=== PATIENT | male | born 1965 | race Caucasian/White ===

== ENCOUNTER 2016-04-25 08:10 | Day surgery (SDC) | payer BC, OTHER ==
[2016-04-21 08:51] VITALS: BMI 56.0
--- NOTE | 2016-04-21 09:28 | PAT Medication Instructions ---
Service Date Apr 21, 2016. Current Home Medication List Colestipol HCl (Colestid), 1 TAB PO BID Dicyclomine Hcl (Bentyl), 20 MG PO QID Fluticasone Propionate (Nasal) (Flonase Allergy Relief), 2 SPRAY JOSSY DAILY PRN for PRN Ibuprofen Tab (Advil), 400-600 MG PO Q6H PRN for Pain Loperamide HCl (Loperamide HCl), 2 CAP PO QID PRN for Diarrhea Losartan Potassium (Cozaar), 25 MG PO QAM Metformin Hcl Er (Glucophage Er), 500 MG PO BID Ranitidine Hcl (Zantac), 150 MG PO BID Medication Instructions For Your Scheduled Surgery - Hold the following medications 48 hours prior to surgery: Metformin Hcl Er (Glucophage Er), 500 MG PO BID - Hold the following medications 24 hours prior to surgery: Colestipol HCl (Colestid), 1 TAB PO BID - Hold the following medications the morning of surgery: Dicyclomine Hcl (Bentyl), 20 MG PO QID Ibuprofen Tab (Advil), 400-600 MG PO Q6H PRN for Pain (otherwise okay to continue per surgeon) Loperamide HCl (Loperamide HCl), 2 CAP PO QID PRN for Diarrhea Losartan Potassium (Cozaar), 25 MG PO QAM - Take the following medications the morning of surgery with a sip of water OTHERWISE NOTHING TO EAT OR DRINK AFTER MIDNIGHT: Ranitidine Hcl (Zantac), 150 MG PO BID Fluticasone Propionate (Nasal) (Flonase Allergy Relief), 2 SPRAY JOSSY DAILY PRN - Take the following medications as scheduled the night before surgery: Ranitidine Hcl (Zantac), 150 MG PO BID Dicyclomine Hcl (Bentyl), 20 MG PO QID Ibuprofen Tab (Advil), 400-600 MG PO Q6H PRN for Pain Fluticasone Propionate (Nasal) (Flonase Allergy Relief), 2 SPRAY JOSSY DAILY PRN Loperamide HCl (Loperamide HCl), 2 CAP PO QID PRN for Diarrhea If you have any questions please call us at [phone] or [phone] or [phone]
[~2016-04-25] VITALS: Ht 193 cm; Wt 211.7 kg
[~2016-04-25 08:10] MED LIST: CLS1 PO; DICY20TA35 PO; FLUT0.15 NAE; IBUP-103 PO; IMD2 PO; LACTATED RINGER'S 1000ML 1,000 ML IV SCH; LOSA1TAB PO; METF500T5 PO; RANI150T3 PO
[2016-04-25 08:51] VITALS: BP 144/85; PULSE 83; TEMP 36.9; O2SAT 97; Ht 193 cm; Wt 211.7 kg
[2016-04-25] MEDS ORDERED: CEFAZOLIN IV 3,000 MG/65 ML D5W IV ONE (09:08)
[2016-04-25] MEDS ORDERED: FENTANYL CITRATE INJ 50 MCG/1 ML 2 ML VIAL ONE ×2 (09:40→10:29)
[2016-04-25] MEDS ORDERED: MIDAZOLAM HCL 1 MG/ML 2ML VIAL ONE (09:40)
[2016-04-25] MEDS ORDERED: ONDANSETRON INJ 2 MG/ML 2 ML VIAL ONE (09:40)
[2016-04-25] MEDS ORDERED: ROCURONIUM BROMIDE 10 MG/ML 5 ML VIAL ONE ×2 (09:40→11:03)
[2016-04-25] MEDS ORDERED: LIDOCAINE HCL 2% 2 ML VIAL (20MG/ML) ONE (09:40)
[2016-04-25] MEDS ORDERED: PROPOFOL IV EMULSION 10 MG/ML 20 ML VIAL IV ONE ×2 (09:40→10:36)
[2016-04-25] MEDS ORDERED: GLYCOPYRROLATE INJ 0.2 MG/ML VIAL ONE ×2 (09:40→12:18)
--- NOTE | 2016-04-25 09:40 | History & Physical Bridge Note ---
H&P Re-Evaluation Bridge Note: I have examined the patient, reviewed the History & Physical and in the interval since the performance of the History & Physical I have noted the following changes of clinical significance: No changes noted
[2016-04-25] MEDS ORDERED: LIDOCAINE HCL 1% 20 ML VIAL ONE (09:58)
[2016-04-25] MEDS ORDERED: BUPIVACAINE 0.5 % 5 MG/1 ML MPF 30ML VIAL ONE (09:59)
[2016-04-25] MEDS ORDERED: SUCCINYLCHOLINE 100MG/5ML SYR IV ONE (10:33)
[2016-04-25] MEDS ORDERED: NEOSTIGMINE METHYLSULFATE 5 MG/5 ML SYR ONE (10:36)
[2016-04-25] MEDS ORDERED: SODIUM CHLORIDE 0.9% 1000ML 1,000 ML IV SCH (12:27)
--- NOTE | 2016-04-25 12:27 | [facility] Post Operative Brief Note ---
Immediate Operative Summary Operative Date Apr 25, 2016. Pre-Operative Diagnosis epigastric hernia Post-Operative Diagnosis epigastric hernia Procedure(s) Performed Epigastric Hernia Repair Surgeon Dr. Mc Oakes Machine Rug Cleaner Surgeon(s) Ramya Ott PA-C Estimated Blood Loss 15ML Findings See dictation Specimens A. HERNIA SAC B. OMENTUM Drains one J-P in the subcutaneous tissue Anesthesia General Complication(s) None Disposition Recovery Room / PACU
[2016-04-25] MEDS ORDERED: MoRPHine SULFATE 4 MG/ML 1 ML CARP\\VIAL IV PRN (12:30)
[2016-04-25] MEDS ORDERED: ONDANSETRON INJ 2 MG/ML 2 ML VIAL IV PRN ×2 (12:30→13:30)
--- NOTE | 2016-04-25 12:31 | Discharge Instructions ---
Discharge Instructions Admission Reason for Admission: Epigastric Hernia Discharge Discharge Diagnosis / Problem: Same Discharge Goals Goal(s): Decrease discomfort Activity Recommendations Activity Limitations: per Instructions/Follow-up section Lifting Limitations: no more than 10 pounds Shower/Bathe: tomorrow (Shower only) . Instructions / Follow-Up Instructions / Follow-Up ACTIVITY RECOMMENDATIONS: * Walk as much as possible. * No heavy lifting (>10 lbs.) for 6 weeks. SPECIAL CARE INSTRUCTIONS: * Ice to hernia repair site on and off until bedtime tonight. * May shower in 24 hours. Let water run over area and pat dry. * Leave steri strips on for one week. * Call the surgeon's office with any questions or concerns - (ex. temperature higher than 101 degrees F, excessive bleeding or pain). MEDICATIONS: Resume previous medications unless instructed otherwise by your surgeon. * Ibuprofen 600 mg every 6 hours with food * Percocet 1 every 4 hours, as needed for pain FOLLOW UP VISIT: If not already scheduled, please call the office to schedule a two week follow- up appointment. Office number Current Hospital Diet Patient's current hospital diet: Discharge Diet Recommended Diet: Regular Diet Procedures Procedures Performed: Epigastric Hernia Repair Pending Studies Studies pending at discharge: no Medical Emergencies . Who to Call and When: Medical Emergencies: If at any time you feel your situation is an emergency, please call 911 immediately. . Non-Emergent Contact Non-Emergency issues call your: Primary Care Provider, Surgeon Call Non-Emergent contact if: your pain is worsening, wound has increased redness, wound has increased pain . "Provider Documentation" section prepared by Mc Oakes. VTE Core Measure Inpt VTE Proph given/why not?: Treatment not indicated
--- NOTE | 2016-04-25 13:06 | OPERATIVE REPORT ---
DATE OF OPERATION: 04/25/2016 PREOPERATIVE DIAGNOSIS: Epigastric hernia. POSTOPERATIVE DIAGNOSIS: Same. PROCEDURE: Repair of epigastric hernia. SURGEON: Dr. Oakes. VINYL WELDER AND FABRICATOR: Ml Ott PA-C. DATE OF PROCEDURE: 04/25/2016. FINDINGS: The patient had a hernia sac that measured between 10-15 cm. There was a significant amount of omental tissue within the hernia, but there was no bowel. That could not be reduced. The hernia defect itself was 6-7 cm. There were no other hernia defects identified. TECHNIQUE: The patient was given a general anesthetic and the area was prepped and draped in the usual sterile fashion. Transverse incision was made over the previously marked area, carried down through the subcutaneous tissue until the hernia sac could be identified. The hernia sac was then away from the subcutaneous tissue using blunt, sharp and cautery dissection where appropriate. I worked down towards the fascia and I had to peel the hernia sac off the anterior surface of the fascia for a distance of about 2 cm around the entire defect. The hernia sac was then opened. I tried to reduce the omental fat back into the abdomen, but I could not. Using a clamp-clamp, divide and ligate technique I removed the omentum and then was able to pass the remainder back into the abdomen. That allowed me access to the interior surface of the hernia sac and then was able to palpate the edge of the fascia around the entire circumference. I then was able to grasp the edge of the fascia and elevate it and establish a preperitoneal plane around the entire circumference and then worked that to a distance of 4-5 cm around the entire circumference of the fascial opening. The redundant hernia sac was removed. The omentum where dissection had been performed was inspected and there was no bleeding. The peritoneum was then closed with a running 2-0 Vicryl with a locked suture. There was 1 other opening in the peritoneum that was closed with a [id number] suture of 2-0 Vicryl. A piece of Atrium mesh was then cut to size and it measured 14 x 11 cm. It was placed in a preperitoneal retrofascial position. The mesh was secured to the undersurface of the fascia using horizontal mattress sutures of 0 PDS and the fascial opening was closed with a running #1 PDS. The wound was irrigated and irrigation removed. The subcutaneous tissue could be mobilized some of the deeper subcutaneous tissue was approximated using 2-0 Vicryl interrupted sutures; however, it left a space at the base just over the fascia. A separate stab incision was made to the right below the hernia incision through which a 10 mm flat Michael-Vallejo was brought. It was placed in the base of the wound, and the subcutaneous tissue was then closed over it using the interrupted 2-0 Vicryl. The superficial subcutaneous tissue was closed with running 3-0 Vicryl and the skin was closed with 4-0 Monocryl in running subcuticular fashion. The skin was anesthetized with 0.5% Marcaine. The skin was cleansed, dried, benzoin placed, Steri-Strips applied. The estimated blood loss was 15 mL. Sponge, needle, and instrument counts were correct prior to closure. The drain was secured with 3-0 nylon. She was transferred to recovery. I attest to the content of the Intraoperative Record and any orders documented therein. Any exceptio ns are noted below.
[2016-04-25] MEDS ORDERED: LABETALOL HCL IV 5 MG/ML 20ML ONE (13:17)
[2016-04-25] MEDS ORDERED: HYDROmorphone INJ 1 MG/ML SYR ONE (13:26)
[2016-04-25] MEDS ORDERED: HYDROmorphone INJ 1 MG/ML SYR IV PRN (13:30)
[2016-04-25] MEDS ORDERED: LABETALOL HCL IV 5 MG/ML 20ML IV PRN (13:30)
[2016-04-25] MEDS ORDERED: EpHEDrine SULFATE INJ 50 MG/ML AMP IV PRN (13:30)
[2016-04-25] MEDS ORDERED: FLUMAZENIL 0.1 MG/1 ML 10 ML VIAL IV PRN (13:30)
[2016-04-25] MEDS ORDERED: ATROPINE SULFATE 0.1 MG/ML 5ML SYR IV PRN (13:30)
[2016-04-25] MEDS ORDERED: PROMETHAZINE HCL INJ 12.5 MG in SODIUM CHLORIDE 0.9% 50ML 50 ML IV PRN (13:30)
[2016-04-25] MEDS ORDERED: NALOXONE HCL 0.4 MG/1 ML VIAL/CARP IV PRN (13:30)
[2016-04-25 14:10] VITALS: BP 147/86; PULSE 77; TEMP 37; O2SAT 93
--- NOTE | 2016-04-25 14:39 | Anesthesiology Progress Note ---
Anesthesia Post Op Note Date & Time Apr 25, 2016 at 14:39 Vital Signs Pain Intensity: 3 Vital Signs Past 12 Hours Date Time Temp Pulse Resp B/P Pulse Ox O2 Delivery O2 Flow Rate FiO2 04/25/16 14:05 36.9 04/25/16 13:55 80 20 166/101 92 Room Air 04/25/16 13:45 79 20 168/86 92 Room Air 04/25/16 13:35 76 20 171/103 96 Room Air 04/25/16 13:28 76 20 146/99 98 Mask 10 04/25/16 13:19 87 20 199/100 97 Mask 10 04/25/16 13:11 90 20 176/103 94 Mask 10 04/25/16 13:01 36.7 93 20 164/111 94 Mask 10 04/25/16 08:51 36.9 83 18 144/85 97 Room Air Notes Mental Status: alert / awake / arousable, participated in evaluation Pt Amnestic to Procedure: Yes Nausea / Vomiting: adequately controlled Pain: adequately controlled Airway Patency, RR, SpO2: stable & adequate BP & HR: stable & adequate Hydration State: stable & adequate Anesthetic Complications: no major complications apparent
[2016-04-25 14:40] VITALS: BP 161/55; PULSE 84; TEMP 36.3; O2SAT 94
[2016-04-25] MEDS: OXYCODONE/ACETAMINOPHEN 5-325 TAB PO PRN ×2 (15:04→15:33)
[2016-04-25] MEDS ORDERED: NURSING VERBAL MED ORDER ONE (15:30)
[2016-04-25 15:40] VITALS: BP 165/66; PULSE 78; TEMP 36.5; O2SAT 95
[2016-04-25 16:00] VITALS: BP 164/81; PULSE 83; TEMP 36.5; O2SAT 95
== END 2016-04-25 16:17 | disposition home or self-care (01) ==
LOC: C.ACU 08:10
PROVIDERS: ATTEND Surgery
DX: K43.9 Ventral hernia without obstruction or gangrene (principal); I10 Essential (primary) hypertension; E11.9 Type 2 diabetes mellitus without complications; E78.5 Hyperlipidemia, unspecified; Z68.43 Body mass index [BMI] 50.0-59.9, adult; E66.01 Morbid (severe) obesity due to excess calories